=== PATIENT | male | born 1970 | race Caucasian/White ===

== ENCOUNTER 2018-01-19 07:00 | Day surgery (SDC) | payer OTHER ==
[~2018-01-19] VITALS: Ht 177.8 cm; Wt 93.0 kg
[2018-01-19] MEDS ORDERED: AVALIDE 300-121 EACH (07:18)
[2018-01-19] MEDS ORDERED: ATENOLOL25 MG (07:18)
[2018-01-20] MEDS ORDERED: CIPRO500 MG PO (12:07)
[2018-01-20] MEDS ORDERED: TRAMADOL HCL50 MG PO (12:08)
[2018-01-20] MEDS ORDERED: URIN D.S. TABL1 EACH PO (12:08)
== END 2018-01-20 08:00 | disposition home or self-care (01) ==
LOC: CIR.AMB 07:00 → ER 07:07 → EDSEX 07:19 → ER 14:01 → SEC-K 14:01 → SURH 14:01 → O/R 14:01 → SURH 16:41 → SEC-K 16:41 → CIR.AMB 01-20 08:00 → EDSTATUS 01-20 10:30 → SURH 01-20 15:26
DX: N13.2 Hydronephrosis with renal and ureteral calculous obstruction (principal); I10 Essential (primary) hypertension; F17.210 Nicotine dependence, cigarettes, uncomplicated